=== PATIENT | female | born 1945 | race Caucasian/White ===

== ENCOUNTER 2016-12-01 13:27 | Emergency (ER) | payer OTHER, MEDICARE ==
[~2016-12-01 13:27] MED LIST: AMLODIPINE BESY10 M1 PO; BISAC-EVAC10 MG PR; BUPROPION XL300 M1 PO; CEFUROXIME250 M1 PO; DOK100 MG PO; HUMALOG KW100 UNIT/1 SC; HUMULIN N100 UNIT/2 SC; LEVOTHYROXINE75 MCG PO; LISINOPRIL30 M1 PO; LOSARTAN POTAS100 MG PO; MELATONIN5 M1 PO; MIRALAX17 GM PO; NADOLOL20 M1; NAPROXEN375 M2 PO; OMEPRAZOLE40 M1 PO; SENNA PLUS 50 M1 TAB PO; TRAMADOL HCL50 MG PO; TRAZODONE HCL50 M1 PO; TYLENOL TAB 32325 MG PO; VITAMIN D50000 IU PO; ZOLOFT100 M1 PO; wheelchair
[2016-12-01 13:46] VITALS: BP 160/72
[2016-12-01 13:54] LABS: ABSOLUTE BASOPHIL COUNT 0 /CUMM (0.0-0.2); ABSOLUTE EOSINOPHIL COUNT 0.2 /CUMM (0.0-0.7); ABSOLUTE GRANULOCYTE CT 5.5 /CUMM (1.4-6.5); ABSOLUTE LYMPH COUNT 1.5 /CUMM (1.2-3.4); ABSOLUTE MONOCYTE COUNT 0.3 /CUMM (0.10-0.60); BASOPHIL % 0.2 % (0.0-2.0); GRANULOCYTE % 72.9 % (42.2-75.2); HEMATOCRIT 43.2 % (37-47); MEAN CORPUSCULAR HGB 26.9 PG (27.0-31.0); MEAN CORPUSCULAR HGB CONC 33.5 G/DL (33.0-37.0); MEAN CORPUSCULAR VOLUME 80.2 FL (81.0-99.0); MEAN PLATELET VOLUME 10.3 FL (7.4-10.4); PLATELET COUNT 142 /CUMM (130-400); RBC DISTRIBUTION WIDTH 14.7 % (11.5-14.5); RED BLOOD CELL CT 5.38 /CUMM (4.20-5.40); WHITE BLOOD CELL COUNT 7.6 /CUMM (4.8-10.8)
[2016-12-01] MEDS ORDERED: OMEPRAZOLE40 M1 PO (14:13)
[2016-12-01] MEDS ORDERED: OFLOXACIN5 ML OP (14:14)
[2016-12-01] MEDS ORDERED: LINZESS145 MC1 PO (14:16)
--- NOTE | 2016-12-01 14:20 | ED GI/GU/ABDOMINAL COMPLAINT ---
History of Present Illness General Chief Complaint: Nausea, Vomiting, Diarrhea Stated Complaint: BIBA, V/D, DEHYDRATION. FROM MD [facility] Source: patient Exam Limitations: no limitations Vital Signs & Intake/Output Vital Signs & Intake/Output Vital Signs Date Time Temp Pulse Resp B/P Pulse O2 O2 Flow FiO2 Ox Delivery Rate 12/01 1346 97.6 59 22 160/72 97 Room Air Allergies Coded Allergies: codeine (HIVES 12/12/15) Reconcile Medications Amlodipine Besylate 10 MG TABLET 1 TAB PO DAILY HTN (Reported) Bupropion HCl (Bupropion XL) 300 MG TAB.ER.24H 1 TAB PO AT BEDTIME SLEEP ( Reported) Insulin Lispro (Humalog Kwikpen U-100) 100 UNIT/1 ML INSULN.PEN DIABETES ( Reported) Insulin NPH Human Isophane (Humulin N Kwikpen) 100 UNIT/ML (3 ML) INSULN.PEN 60 U SC BID DIABETES (Reported) Levothyroxine Sodium 75 MCG TABLET 1 TAB PO DAILY AC THYROID (Reported) Linaclotide (Linzess) 145 MCG CAPSULE 1 CAP PO DAILY IBS (Reported) Lisinopril 30 MG TABLET 1 TAB PO DAILY HTN (Reported) Nadolol 20 MG TABLET HIGH BLOOD PRESSURE (Reported) Ofloxacin 0.3 % DROPS 2 DROP OP TID EYE (Reported) Omeprazole 40 MG CAPSULE.DR 1 CAP PO DAILY GI (Reported) Ondansetron HCl (Zofran) 4 MG TABLET 1 TAB PO Q6-8P PRN NAUSEA Sertraline HCl (Zoloft) 100 MG TABLET 1.5 TAB PO DAILY MENTAL HEALTH ( Reported) Trazodone HCl 50 MG TABLET 1 TAB PO QPM SLEEP (Reported) Triage Note: PT VERY VAGUE, WENT TO TODAY, SENT BY OFFICE FOR [place] PT UNABLE TO WALK WELL, USUALLY IN W/C PT REPORTS STARTED VOMITING THIS AM. Triage Nurses Notes Reviewed? yes ? N Is pt currently ? No Onset: Gradual Duration: constant Timing: recent history Quality/Severity: moderate Severity Numbers: 5 Radiation: no radiation Activities at Onset: eating HPI: Patient is a 71-year-old female with a past medical history of MS who presents emergency room brought in by ambulance in which the also presents stating that she was in her normal state of health today at 9 AM she ate eggs and toast approximate 2 hours later while being evaluated for a follow-up with PCP Dr. GEE she had acute onset of dry heaves and nausea. No emesis had occurred does state that she's had episodes like this in the past. Patient was advised by primary care doctor to receive IV fluids and be evaluated. Patient currently states that she just feels tired and weak however denies any nausea vomiting fever chills chest pain or pain jaw pain vaginal bleeding vaginal discharge dysuria hematuria. (JERAMIE PALMER) Past History Travel History Traveled to [place] past 21 day No Medical History Any Pertinent Medical History? 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 No (JERAMIE PALMER) Review of Systems Review of Systems Constitutional: Reports: no symptoms. EENTM: Reports: no symptoms. Respiratory: Reports: no symptoms. Cardiovascular: Reports: no symptoms. GI: Reports: see HPI, nausea. Denies: abdominal pain. Genitourinary: Reports: no symptoms. Musculoskeletal: Reports: no symptoms. Skin: Reports: no symptoms. Neurological/Psychological: Reports: no symptoms. Hematologic/Endocrine: Reports: no symptoms. Immunologic/Allergic: Reports: no symptoms. All Other Systems: Reviewed and Negative (JERAMIE PALMER) Physical Exam Physical Exam General Appearance: no apparent distress, alert Gastrointestinal: normal bowel sounds, soft, non-tender, no organomegaly Comments: Well-developed well-nourished person in no acute distress HEENT: Normal EENT exam, Neck: Supple, no lymphadenopathy, normal range of motion without pain or tenderness Back: Nontender, no CVA tenderness. Cardiovascular: Regular rate and rhythms no murmurs rubs or gallops, normal JVP Respiratory: Chest nontender. No respiratory distress.breath sounds clear to auscultation bilaterally Extremity: No edema, no calf tenderness to palpation, normal and equal pulses. Neuro: Alert oriented x3, Skin: No appreciable rash on exposed skin, skin is warm and dry. Psych: Mood and affect is normal, memory and judgment is normal. Core Measures ACS in differential dx? No Severe Sepsis Present: No Septic Shock Present: No (MELVINA ROJO,JERAMIE) Progress Differential Diagnosis: AAA, AMI, appendicitis, biliary colic, bowel obstruction , colon cancer, cholecystitis, diverticulitis, ectopic , endometritis, esophageal varices, gastritis, hepatitis, hernia, hemorrhoids, ischemic bowel, inflamm bowel dis, intrauterine , kidney stone, Maricel-Hortensia tear, ovarian cyst, ovarian torsion, pancreatitis, PID/cervicitis, peptic ulcer, PUD/ GERD, perforated viscous, SBO, threatened AB, UTI/pyelo Plan of Care: Orders Procedure Date/time Status LACTIC ACID 12/01 1646 Active TROPONIN LEVEL 12/01 1346 Complete MAGNESIUM 12/01 1346 Complete LIPASE 12/01 1346 Complete LACTIC ACID 12/01 1346 Complete COMPREHENSIVE METABOLIC PANEL 12/01 1346 Complete CBC WITHOUT DIFFERENTIAL 12/01 1346 Complete AMYLASE 12/01 1346 Complete EKG 12/01 1330 Active Laboratory Tests 12/01/16 1340: Anion Gap 11, Estimated GFR > 60, BUN/Creatinine Ratio 22.9, Glucose 235 H, Lactic Acid 1.2, Calcium 9.7, Magnesium 2.0, Total Bilirubin 0.8, AST 22, ALT 27 , Alkaline Phosphatase 66, Troponin I 0.02, Total Protein 8.0, Albumin 4.3, Globulin 3.7, Albumin/Globulin Ratio 1.2, Amylase 30, Lipase 70, CBC w Diff NO MAN DIFF REQ, RBC 5.38, MCV 80.2 L, MCH 26.9 L, RDW 14.7 H, MPV 10.3, Gran % 72.9, Lymphocytes % 19.5 L, Monocytes % 4.4, Eosinophils % 3.0, Basophils % 0.2 , Absolute Granulocytes 5.5, Absolute Lymphocytes 1.5, Absolute Monocytes 0.3, Absolute Eosinophils 0.2, Absolute Basophils 0, PUBS MCHC 33.5 Currently is in no apparent distress alert and oriented and has nontender abdomen. Patient had unremarkable initial blood work patient was given IV fluid resuscitation patient states that she feels much improved. Family and patient was requesting to be safely discharged into have a meal at home. Patient was able tolerate by mouth on discharge and on reexamination patient again had nontender abdomen (JERAMIE PALMER) Initial ED EKG: none (JERAMIE PALMER) Departure Departure Disposition: HOME OR SELF CARE Condition: Stable Clinical Impression Primary Impression: Nausea Secondary Impressions: Dehydration Referrals: GERARD HANNAH,TYESHA Law (PCP/Family) Additional Instructions: As discussed begin a 24-hour clear liquid and bland diet. Begin the prescription of Zofran for future nausea. If symptoms worsen return to emergency room. If no better by tomorrow follow-up with your primary care doctor and/or PATIENT COORDINATOR Dr. BYRD Departure Forms: Customer Survey General Discharge Information Prescriptions: Current Visit Scripts Ondansetron HCl (Zofran) 1 TAB PO Q6-8P PRN NAUSEA #15 TAB (JERAMIE PALMER) PA/RN CORRECTIONS Co-Sign Statement Statement: ED Attending supervision documentation- x I saw and evaluated the patient. I have also reviewed all the pertinent lab results and diagnostic results. I agree with the findings and the plan of care as documented in the PA's/RN CORRECTIONS's documentation. [] I have reviewed the ED Record and agree with the PA's/RN CORRECTIONS's documentation. [] Additions or exceptions (if any) to the PAs/RN CORRECTIONS's note and plan are summarized below: [] (PEREZ HANNAH,JAYDA)
[2016-12-01] MEDS ORDERED: ZOFRAN4 M2 PO (15:51)
== END 2016-12-01 15:52 ==
LOC: ERH 13:27
PROVIDERS: Physician Assistant
DX: E86.0 Dehydration (principal); R11.0 Nausea
CPT/HCPCS: 93005; 93010; 96374; J2405